=== PATIENT | female | born 1975 | race Caucasian/White ===

== ENCOUNTER → 2025-03-11 09:56 | Outpatient (REF) | payer MEDICARE, OTHER, SELFPAY | LOC: HWRCS 09:56 | PROVIDERS: ATTENDING PHYSICIAN Internal Medicine Cardiovascular Disease; FAMILY PHYSICIAN Internal Medicine | DX: R07.89 Other chest pain (principal); R06.09 Other forms of dyspnea | CPT/HCPCS: 93306 ==

== ENCOUNTER 2025-04-06 10:45 | Day surgery (SDC) | payer MEDICARE, OTHER, SELFPAY ==
[2025-04-06] VITALS (9 sets, daily range): BP systolic 114–137; BP diastolic 75–81
[2025-04-06 11:05] LABS: Hematocrit 39.5 % (37.0-47.0); Hemoglobin 13.5 g/dL (12.0-16.0); Mean Corp Hgb Conc. 34.2 g/dL (33.0-37.0); Mean Corpuscular Volume 91.2 fL (81.0-99.0); Platelet Count 183 10^3/uL (130-400); Red Cell Dist. Width 12.1 % (11.5-14.5)
[2025-04-06 11:21] LABS: Blood Urea Nitrogen 5 mg/dl (7-17); Calcium 9.0 mg/dl (8.4-10.2); Carbon Dioxide 26 mmol/L (22-30); Chloride 109 mmol/L (98-107); Glucose 102 mg/dl (70-99); Potassium 4.3 mmol/L (3.5-5.1); Sodium 142 mmol/L (135-145); eGFR > 60.00
--- NOTE | 2025-04-06 13:21 | ITS.CL.CATH ---
[facility] - Catheterization
Cardiac Catheterization
Procedure Report:
RIGHT HEART CATHETERIZATION
Date of Procedure: 04/06/2025
Referring: Katharina Vela
PROCEDURES:
1. Right heart catheterization
2. Moderate sedation
INDICATION: Assess invasive hemodynamics
Hemodynamics (mmHg):
RA (m) : 9
RV (s/d,m) : 32/; 14
PA (s/d, m) : 31, 21
PCWP (m) : 14
PA saturation: 76.9% on room air
AO saturation: 100% on room air
RA saturation: 75.9% on room air
Cardiac Output : 6.8 L/min by prachi calculation
Cardiac Index : 3.16 L/min/m-2 by prachi calculation
Systemic vascular resistance: 976 dsc^(-5)
Pulmonary vascular resistance: 1.03 menezes unit
CONCLUSION:
1. Mildly elevated right and left-sided filling pressure with normal cardiac output.
Copy to: Katharina Vela
Radha Lovell MD, FACC, [facility]
== END 2025-04-06 15:15 | disposition home or self-care (01) ==
LOC: CATH 10:45
PROVIDERS: ATTENDING PHYSICIAN Internal Medicine Interventional Cardiology; FAMILY PHYSICIAN Internal Medicine Rheumatology; OTHER PHYSICIAN Internal Medicine Cardiovascular Disease
DX: R07.89 Other chest pain (principal); R06.02 Shortness of breath
CPT/HCPCS: 80048; 85027; 93451; C1769; C1894

== ENCOUNTER → 2025-05-19 12:00 | Outpatient (REF) | payer MEDICARE, OTHER, SELFPAY | LOC: DHSLP 12:00 | PROVIDERS: ATTENDING PHYSICIAN Internal Medicine Cardiovascular Disease; FAMILY PHYSICIAN Internal Medicine | DX: G47.30 Sleep apnea, unspecified (principal); R06.83 Snoring | CPT/HCPCS: 95800 ==